=== PATIENT | male | born 1950 | race Caucasian/White ===

== ENCOUNTER 2023-09-20 08:58 | Day surgery (SDC) | payer OTHER, BC ==
[~2023-09-20] VITALS: Ht 180.3 cm; Wt 102.8 kg
[2023-09-20] VITALS (19 sets, daily range): BP systolic 89–155; BP diastolic 50–85
[~2023-09-20 08:58] MED LIST: Amlodipine Bes2.5 MG PO; ESCI10 PO; LISI5 PO; Lactated Ringer's 1,000 ML IV SCH; Lovastatin20 MG PO; METPHE10 PO; QUET25 PO
--- NOTE | 2023-09-20 10:35 | NUR ---
Ambulatory in Day Surgery. History, Chart, Medications and Allergies reviewed before start of procedure. Lungs clear T/O to Auscultation. Patient confirms NPO status and agrees with scheduled surgery. Pre-Op teaching done. Pt verbalizes understanding. Patient States Post-Procedure ride home has been arranged.
[2023-09-20] MEDS ORDERED: propofoL 40 ML IV ONE (10:46)
[2023-09-20] MEDS ORDERED: Midazolam HCl 1MG / ML 2ML Vial ONE (10:46)
--- NOTE | 2023-09-20 10:56 | NUR ---
09/20/23 1056 [address] [place] HISTORY, CHART, MEDICATIONS AND ALLERGIES REVIEWED BEFORE START OF PROCEDURE. PATIENT CONFIRMS NPO STATUS AND AGREES WITH SCHEDULED PROCEDURE. 3-LEAD EKG REVIEWED WITH PHYSICIAN PRIOR TO START OF PROCEDURE. MONITOR INTACT WITH CONTINUOUS PULSE OXIMETRY,CAPNOGRAPHY, 3-LEAD EKG, INTERMITTENT BP. SUPPLEMENTAL O2 TO BE TITRATED THROUGHOUT PROCEDURE TO MAINTAIN O2 SATURATION ABOVE 90%. PATIENT DETERMINED TO BE ASA APPROPRIATE FOR PROPOFOL SEDATION PRIOR TO START OF PROCEDURE BY .MALLAMPATI CLASS 2 AIRWAY: COMPLETE VISUALIZATION OF THE UVULA.
--- NOTE | 2023-09-20 12:03 | NUR ---
Discharge instructions reviewed with patient. Patient verbalizes understanding. Copy given to patient to take home. Patient States Post-Procedure ride home has been arranged with local [facility] [employer], [place] by Dr. Lovelace. Will discharge via wheelchair to car for ride home, currently awaiting cab arrival.
== END 2023-09-20 12:10 | disposition home or self-care (01) ==
LOC: ORSCMMR 08:58 → ORD 10:00 → ORSCMMR 12:10
PROVIDERS: Internal Medicine Gastroenterology
PROC: 0DBN8ZX Excision of Sigmoid Colon, Via Natural or Artificial Opening Endoscopic, Diagnostic (ICD-10-PCS; principal; 2023-09-20 10:00)
PROC: 0DBK8ZX Excision of Ascending Colon, Via Natural or Artificial Opening Endoscopic, Diagnostic (ICD-10-PCS; principal; 2023-09-20 10:00)
PROC: 0DBL8ZX Excision of Transverse Colon, Via Natural or Artificial Opening Endoscopic, Diagnostic (ICD-10-PCS; principal; 2023-09-20 10:00)
DX: Z12.11 Encounter for screening for malignant neoplasm of colon (principal); Z86.010 Personal history of colon polyps; D12.3 Benign neoplasm of transverse colon; K63.5 Polyp of colon; D12.0 Benign neoplasm of cecum; D12.2 Benign neoplasm of ascending colon; I10 Essential (primary) hypertension; F41.9 Anxiety disorder, unspecified; F90.9 Attention-deficit hyperactivity disorder, unspecified type; E78.00 Pure hypercholesterolemia, unspecified; Z79.899 Other long term (current) drug therapy
CPT/HCPCS: 88305; J2250; J2704; J7120